=== PATIENT | male | born 1975 | race Caucasian/White ===

== ENCOUNTER 2018-10-04 07:00 | Day surgery (SDC) | payer OTHER ==
[~2018-10-04] VITALS: Ht 167.6 cm; Wt 65.8 kg
[~2018-10-04 07:00] MED LIST: ARMOUR THYROID90 MG
[2018-10-04] MEDS ORDERED: TYLENOL EXTRA500 MG PO (18:26)
[2018-10-04] MEDS ORDERED: ZOFRAN4 MG PO (18:26)
[2018-10-04] MEDS ORDERED: TRAMADOL HCL50 MG PO (18:26)
[2018-10-04] MEDS ORDERED: MIRALAX17 GM PO (18:26)
[2018-10-04] MEDS ORDERED: NEURONTIN300 MG PO (18:26)
== END 2018-10-04 13:00 | disposition home or self-care (01) ==
LOC: O/R 07:00 → CIR.AMB 07:00 → SURG 07:00 → EDSTATUS 09:00 → SURG 09:00 → O/R 11:51 → CIR.AMB 13:00 → O/R 20:45
DX: K40.90 Unilateral inguinal hernia, without obstruction or gangrene, not specified as recurrent (principal); K42.9 Umbilical hernia without obstruction or gangrene; K43.9 Ventral hernia without obstruction or gangrene; K66.8 Other specified disorders of peritoneum